=== PATIENT | female | born 1985 | race Two or more races ===

== ENCOUNTER 2021-03-09 11:39 | Day surgery (SDC) | payer OTHER ==
[~2021-03-09] VITALS: Ht 160 cm; Wt 98.9 kg
[2021-03-09 12:14] VITALS: BP 144/96
[2021-03-09] MEDS ORDERED: FLUMAZENIL 0.1 MG/1 ML, 5ML ONE (13:48)
[2021-03-09] MEDS ORDERED: FENTANYL PF 100 MCG/2ML ONE (13:48)
[2021-03-09] MEDS ORDERED: MIDAZOLAM 1 MG/ML, 5ML ONE (13:48)
[2021-03-09] MEDS ORDERED: NALOXONE 1 MG/ML, 2ML ONE (13:48)
== END 2021-03-09 16:00 | disposition home or self-care (01) ==
LOC: RAD 11:39
PROVIDERS: ATTEND Obstetrics & Gynecology Female Pelvic Medicine and Reconstructive Surgery
DX: G57.20 Lesion of femoral nerve, unspecified lower limb (principal); M25.80 Other specified joint disorders, unspecified joint; Z79.899 Other long term (current) drug therapy; Z88.2 Allergy status to sulfonamides
CPT/HCPCS: 20220; 77012; 88307; 88311; 99156; 99157; J2250; J3010; J2310